=== PATIENT | female | born 1970 | race Asian ===

== ENCOUNTER 2020-03-17 18:42 | Emergency (ER) | payer BC, SELFPAY ==
[~2020-03-17] VITALS: Ht 157.5 cm; Wt 76.2 kg
[2020-03-17 19:02] VITALS: BP_SYST 125
[2020-03-17] MEDS: KETOROLAC TROMETHAMINE 30 MG VIAL IVP ONE (20:00)
[2020-03-17 20:11] LABS: BILIRUBIN,URINE NEGATIVE (NEGATIVE); BLOOD, URINE NEGATIVE (NEGATIVE); CLARITY/URINE CLEAR (CLEAR); COLOR,URINE YELLOW (YELLOW); GLUCOSE,URINE NEGATIVE (NEGATIVE); LEUKOCYTE ESTERASE ,URINE NEGATIVE (NEGATIVE); NITRITE, URINE NEGATIVE (NEGATIVE); PH,URINE 6.5 (5.0-8.0); PROTEIN URINE NEGATIVE (NEGATIVE); UROBILINOGEN,URINE 0.2 (0.2-1.0)
[2020-03-17 20:15] LABS: BASOPHILS % (AUTO) 0.5 % (0.0-2.0); EOSINOPHILS % (AUTO) 0.2 % (0.0-4.0); HEMOGLOBIN 14.7 g/dL (12.0-16.0); LYMPHOCYTES # (AUTO) 1.1 K/uL (1.0-5.5); LYMPHOCYTES % (AUTO) 24.2 % (20.5-51.5); MEAN CORPUSCULAR HEMOGLOBIN 30 pg (27-31); MEAN CORPUSCULAR HGB CONC 34 % (32-36); MEAN CORPUSCULAR VOLUME 86 fL (79.0-98.0); MONOCYTES # (AUTO) 0.6 K/uL (0.0-1.0); MONOCYTES % (AUTO) 12.6 % (1.7-9.3); NEUTROPHILS # (AUTO) 2.9 K/uL (1.8-7.7); NEUTROPHILS % (AUTO) 62.5 % (40.0-70.0); PLATELET COUNT (AUTO) 219 K/uL (130-430); RED BLOOD CELL COUNT(AUTO) 4.98 MIL/uL (4.2-6.2); RED CELL DISTRIBUTION WIDTH 13.3 % (9.0-15.0); WHITE BLOOD COUNT (AUTO) 4.6 K/uL (4.8-10.8)
[2020-03-17 20:18] LABS: KETONES,URINE NEGATIVE (NEGATIVE)
[2020-03-17] MEDS: NACL 0.9% 1,000 ML IV ONE (20:27)
[2020-03-17 20:34] LABS: PROTHROMBIN TIME 9.7 SECS (9.5-12.5)
[2020-03-17 20:35] LABS: CALCIUM 8.3 mg/dL (8.4-11.0); CREATININE 0.69 mg/dL (0.55-1.30)
[2020-03-17 20:47] LABS: ALBUMIN 3.2 g/dL (3.4-4.8); TOTAL BILIRUBIN 0.4 mg/dL (0.0-1.0)
[2020-03-18 00:45] VITALS: BP_SYST 125
== END 2020-03-18 00:45 | disposition home or self-care (01) ==
LOC: SED 18:42
DX: R10.11 Right upper quadrant pain (principal); R11.10 Vomiting, unspecified
CPT/HCPCS: 36415; 71045; 74177; 76700; 80053; 81003; 83605; 85025; 85610; 85730; 87040; 87086; 93005; 96361; 96374; 99285; J1885; J7030; Q9967